=== PATIENT | male | born 1940 | race Caucasian/White ===

== ENCOUNTER 2020-12-14 09:26 | Day surgery (SDC) | payer OTHER, BC ==
[2020-12-09 11:29] VITALS: BMI 19.9
[2020-12-14] MEDS ORDERED: CYCLOPENTOLATE 2% OPHTH SOLN 2 ML BOTTLE ONE (10:30)
[2020-12-14] MEDS ORDERED: PHENYLEPHRINE 2.5% OPHTH SOLN 15 ML BOTTLE ONE (10:30)
[2020-12-14] MEDS ORDERED: CIPROFLOXACIN 0.3% EYE DROPS 5 ML BOTTLE ONE (10:31)
[2020-12-14] MEDS ORDERED: TROPICAMIDE 1% OPHTH SOLN 15 ML BOTTLE ONE (10:31)
[2020-12-14] MEDS ORDERED: MIDAZOLAM HCL 2 MG/2 ML SINGLE DOSE VIAL ONE (10:36)
[2020-12-14] MEDS ORDERED: TROPICAMIDE 1% OPHTH SOLN 15 ML BOTTLE OD ONE ×3 (10:40→10:50)
[2020-12-14] MEDS ORDERED: PHENYLEPHRINE 2.5% OPHTH SOLN 15 ML BOTTLE OD ONE ×3 (10:40→10:50)
[2020-12-14] MEDS ORDERED: CIPROFLOXACIN 0.3% EYE DROPS 5 ML BOTTLE OD ONE ×3 (10:40→10:50)
[2020-12-14] MEDS ORDERED: CYCLOPENTOLATE 2% OPHTH SOLN 2 ML BOTTLE OD ONE ×3 (10:40→10:50)
[2020-12-14] MEDS ORDERED: TETRACAINE 0.5% OPHTH SOLN 2 ML BOTTLE ONE (11:27)
[2020-12-14] MEDS ORDERED: LIDOCAINE 1% P/F 10 MG/ML VIAL ONE (11:27)
[2020-12-14] MEDS ORDERED: BSS (NA/CA/MG/K) BALANCED SALT SOLUTION OPHTH SOLN 15 ML BOTTLE ONE (11:27)
[2020-12-14] MEDS ORDERED: CARBACHOL 0.01% INTRA-OCULAR 1.5 ML VIAL ONE (11:28)
[2020-12-14] MEDS ORDERED: NEO/POLYMYX B SULF/DEXAMETH OPHTHALMIC 5ML BOTTLE ONE (11:28)
[2020-12-14 12:21] VITALS: TEMP 98.2
[2020-12-14 12:49] VITALS: BP 150/69; PULSE 68
== END 2020-12-14 13:00 | disposition home or self-care (01) ==
LOC: FASU 09:26
PROVIDERS: ATTEND Ophthalmology
PROC: 08RJ3JZ Replacement of Right Lens with Synthetic Substitute, Percutaneous Approach (ICD-10-PCS; principal; 2020-12-14 11:49)
DX: H26.8 Other specified cataract (principal)

== ENCOUNTER 2022-11-28 10:42 | Day surgery (SDC) | payer OTHER, BC ==
[2022-11-26 15:37] VITALS: BMI 20.9
[2022-11-28] MEDS ORDERED: CARBACHOL 0.01% INTRA-OCULAR 1.5 ML VIAL ONE (10:57)
[2022-11-28] MEDS ORDERED: NEO/POLYMYX B SULF/DEXAMETH OPHTHALMIC 5ML BOTTLE ONE (10:57)
[2022-11-28] MEDS ORDERED: BSS (NA/CA/MG/K) BALANCED SALT SOLUTION OPHTH SOLN 15 ML BOTTLE ONE (10:57)
[2022-11-28] MEDS: CYCLOPENTOLATE 2% OPHTH SOLN 2 ML BOTTLE ONE ×3 (11:45→11:55)
[2022-11-28] MEDS: PHENYLEPHRINE 2.5% OPTHALMIC DROP 2ML BOTTLE ONE ×3 (11:45→11:55)
[2022-11-28] MEDS: CIPROFLOXACIN 0.3% EYE DROPS 5 ML BOTTLE ONE ×3 (11:45→11:55)
[2022-11-28] MEDS: TROPICAMIDE 1% OPHTH SOLN 15 ML BOTTLE ONE ×3 (11:45→11:55)
[2022-11-28] MEDS ORDERED: MIDAZOLAM HCL 2 MG/2 ML SINGLE DOSE VIAL ONE (12:42)
[2022-11-28] MEDS ORDERED: ONDANSETRON 4 MG/2 ML VIAL ONE (13:25)
[2022-11-28 13:54] VITALS: TEMP 98.1
[2022-11-28 13:57] VITALS: BP 138/92; PULSE 55; RESP 20
== END 2022-11-28 14:14 | disposition home or self-care (01) ==
LOC: FASU 10:42
PROVIDERS: ATTEND Ophthalmology
PROC: 08RK3JZ Replacement of Left Lens with Synthetic Substitute, Percutaneous Approach (ICD-10-PCS; principal; 2022-11-28 13:17)
DX: H26.8 Other specified cataract (principal)
CPT/HCPCS: 66984; V2632

== ENCOUNTER 2025-03-21 12:45 | Emergency (ER) | payer OTHER, BC ==
[2025-03-21 13:06] VITALS: BP 135/60; PULSE 101; RESP 18; BMI 19.5
[2025-03-21 15:04] VITALS: TEMP 98.7
[2025-03-21 15:37] LABS: EPITHELIAL CELLS 0-5 /hpf
[2025-03-21] MEDS ORDERED: CIPROFLOXACIN 250 MG TABLET (RESTRICTED TO ID) PO ONE (16:37)
[2025-03-21] MEDS: CIPROFLOXACIN 500 MG TABLET (RESTRICTED TO ID) PO ONE (16:38)
== END 2025-03-21 16:53 | disposition home or self-care (01) ==
LOC: FER 12:45
DX: R31.9 Hematuria, unspecified (principal); K40.90 Unilateral inguinal hernia, without obstruction or gangrene, not specified as recurrent
CPT/HCPCS: 76775-TC; 76856-TC; 81003; 81015; 87086; 99284-25

== ENCOUNTER 2025-05-17 17:03 | Observation (INO) | payer OTHER, BC ==
[2025-05-17 18:11] LABS: ABSOLUTE IMMATURE GRANULOCYTES 0.02 x10^3/uL (0.0-0.031); BASOPHILS # 0.09 x10^3/uL (0.01-0.08); EOSINOPHIL % 2.8 % (0.8-7.0); EOSINOPHILS # 0.21 x10^3/uL (0.04-0.54); MCHC 32.1 g/dl (32.3-36.5); MEAN CELL VOLUME 93.1 fl (79.0-92.2); MEAN PLT VOLUME 10.4 fl (9.4-12.4); MONOCYTE # 0.52 x10^3/uL (0.30-0.82); MONOCYTE % 6.9 % (5.3-12.2); RDW 13.5 % (12.6-16.6)
[2025-05-17 18:16] LABS: INR 1.14 (0.83-1.09); PROTHROMBIN TIME (PATIENT) 12.7 SEC (9.7-13.0)
[2025-05-17 18:18] LABS: ACTIVATED PTT 27.2 SECONDS (25.2-36.5)
[2025-05-17 18:27] LABS: ALK PHOS 58.0 U/L (45-117); CO2 30.0 mmol/L (21-32); CREATININE 1.0 mg/dl (0.6-1.3); GLUCOSE,RANDOM 90.0 mg/dl (74-106); SGOT/AST 15.0 U/L (15-37); SGPT/ALT 16.0 U/L (7-52); TOT PROT 6.1 g/dl (6.4-8.2)
[2025-05-17] MEDS ORDERED: CALCIUM CHLORIDE 1 GM/10 ML *DISP.SYRIN ONE (18:27)
[2025-05-17 21:00] LABS: HCV DIAGNOSTIC IN-HOUSE W/RFLX NON-REACTIVE (NONREACTIVE); HIV INTERPRETATION NEGATIVE (NEGATIVE)
[2025-05-17] MEDS ORDERED: DEXTROSE 5%-0.45% SALINE 1,000 ML IV SCH (22:30)
[2025-05-17] MEDS ORDERED: ACETAMINOPHEN 1000 MG/100 ML BAG IVPB PRN (22:31)
[2025-05-17 23:46] VITALS: BMI 19.5
[2025-05-18 08:09] LABS: ABSOLUTE IMMATURE GRANULOCYTES 0.03 x10^3/uL (0.0-0.031); BASOPHILS # 0.08 x10^3/uL (0.01-0.08); EOSINOPHIL % 4.1 % (0.8-7.0); EOSINOPHILS # 0.24 x10^3/uL (0.04-0.54); MCHC 32.0 g/dl (32.3-36.5); MEAN CELL VOLUME 93.5 fl (79.0-92.2); MEAN PLT VOLUME 10.4 fl (9.4-12.4); MONOCYTE # 0.54 x10^3/uL (0.30-0.82); MONOCYTE % 9.2 % (5.3-12.2); RDW 13.6 % (12.6-16.6)
[2025-05-18 08:57] LABS: CO2 31.0 mmol/L (21-32); CREATININE 1.1 mg/dl (0.6-1.3); GLUCOSE,RANDOM 87.0 mg/dl (74-106)
[2025-05-18] MEDS: MEMANTINE HCL 10 MG TABLET (FP) PO SCH (10:11)
[2025-05-18 10:26] VITALS: RESP 18
[2025-05-18 17:00] VITALS: BP 118/66; PULSE 60; TEMP 98.4
[2025-05-18] MEDS ORDERED: LATANOPROST 0.005% OPHTH SOLN 2.5ML BOTTLE OS SCH (22:00)
[2025-05-18] MEDS ORDERED: TAMSULOSIN HCL 0.4 MG CAP PO SCH (22:00)
[2025-05-18] MEDS ORDERED: ATORVASTATIN CA 20 MG TABLET (FP) PO SCH (22:00)
[2025-05-19] MEDS ORDERED: PANTOPRAZOLE 40 MG TABLET PO SCH (10:00)
== END 2025-05-18 19:20 | disposition home or self-care (01) ==
LOC: FER 17:03 → FM/S 21:37 → J8W 05-18 13:28
PROVIDERS: ADMIT Student in an Organized Health Care Education/Training Program
DX: R10.13 Epigastric pain (principal); K21.9 Gastro-esophageal reflux disease without esophagitis; K86.2 Cyst of pancreas; F03.90 Unspecified dementia, unspecified severity, without behavioral disturbance, psychotic disturbance, mood disturbance, and anxiety; R91.1 Solitary pulmonary nodule; K83.8 Other specified diseases of biliary tract; R41.3 Other amnesia; N40.0 Benign prostatic hyperplasia without lower urinary tract symptoms; H40.9 Unspecified glaucoma; E78.5 Hyperlipidemia, unspecified; K40.90 Unilateral inguinal hernia, without obstruction or gangrene, not specified as recurrent
CPT/HCPCS: 36415; 74177-TC; 74181-TC; 80048; 80053; 83690; 85025; 85610; 85730; 86803; 87389; 99285-25; G0378; Q9967